=== PATIENT | male | born 1940 | race African-American/Black ===

== ENCOUNTER 2016-09-13 13:04 | Observation (INO) | payer MEDICARE, MEDICAID ==
[~2016-09-13] VITALS: Ht 170.2 cm; Wt 63.5 kg
[2016-09-13 15:49] LABS: *AMPHETAMINES SCREEN URINE NEGATIVE (NEGATIVE); *BARBITURATES SCREEN URINE NEGATIVE (NEGATIVE); *BENZODIAZEPINES SCREEN URINE NEGATIVE (NEGATIVE); *COCAINE SCREEN URINE NEGATIVE (NEGATIVE); CANNABINOID URINE SCREEN NEGATIVE (NEGATIVE); ECSTASY MDMA SCREEN URINE NEGATIVE (NEGATIVE); METHADONE URINE SCREEN NEGATIVE (NEGATIVE); OPIATES URINE SCREEN NEGATIVE (NEGATIVE); PHENCYCLIDINE URINE SCREEN NEGATIVE (NEGATIVE)
[2016-09-13] MEDS ORDERED: HEPARIN 100 UNITS/1 ML VIAL IVF STA (16:05)
[2016-09-13] MEDS ORDERED: HEPARIN 25,000 UNITS PREMIX 500 ML IV SCH ×2 (16:15→17:15)
[2016-09-13 16:37] LABS: BASOPHILS % 1.5 % (0.0-2.0); EOSINOPHILS % 2.1 % (0.0-5.0); HEMATOCRIT. 32.9 % (42.0-52.0); HEMOGLOBIN. 10.9 g/dL (14.0-18.0); LYMPHOCYTES % 26.2 % (20.0-50.0); MEAN CORPUSCULAR HEMOGLOBIN 27.7 pg (28.0-32.0); MEAN CORPUSCULAR HGB CONC 33.2 g/dL (31.0-37.0); MEAN CORPUSCULAR VOLUME 83.5 fL (80.0-94.0); MONOCYTES % 14.8 % (2.0-8.0); NEUTROPHILS % 55.4 % (40.0-76.0); PLATELET 270 x1000/uL (130-400); RED BLOOD CELL COUNT 3.93 mill/uL (4.7-6.1); RED CELL DISTRIBUTION WIDTH 14.4 % (11.6-14.6); WHITE BLOOD COUNT 7.2 x1000/uL (4.5-11.0)
[2016-09-13 16:42] LABS: PROTHROMBIN TIME 10.4 sec
[2016-09-13 16:51] LABS: ANION GAP 10; CALCIUM 8.8 mg/dL (8.5-10.1); CARBON DIOXIDE 32 mEq/L (21-32); CHLORIDE 102 mEq/L (98-107); INDEX HEMOLYSI 1 (1-3); INDEX ICTERIC 1 (1-4); INDEX LIPEMIC 1 (1-3); NT PRO B-TYPE NATRIURETIC PEP 645 pg/mL (5-125); TROPONIN I 0.02 ng/mL (0.00-0.04); UREA NITROGEN BLOOD 9 mg/dL (7-21); eGFR > 60 mL/min (>60)
[2016-09-13] MEDS ORDERED: HEPARIN SODIUM 1,000 UNIT/1ML VIAL IV STA ×2 (16:57→17:00)
[2016-09-13] MEDS ORDERED: POTASSIUM CHLORIDE 20MEQ TABLET SR PO ONE (18:30)
[2016-09-13 18:56] VITALS: BP 142/102
[2016-09-13 19:35] VITALS: BP 148/86
[2016-09-13] MEDS ORDERED: CLONIDINE 0.1MG TABLET PO PRN (21:00)
[2016-09-13] MEDS ORDERED: ONDANSETRON HCL 4MG/2ML VIAL IV PRN (21:00)
[2016-09-13] MEDS ORDERED: IPRATROPIUM/ALBUTEROL 0.5-3(2.5)MG/3ML NEB INH PRN (21:00)
[2016-09-13] MEDS ORDERED: HYDROCODONE/ACETAMINOPHEN 5/325MG TABLET PO PRN (21:00)
[2016-09-13] MEDS ORDERED: ACETAMINOPHEN 325MG TABLET PO PRN (21:00)
[2016-09-13] MEDS: POTASSIUM CHLORIDE 20MEQ TABLET SR PO SCH (21:17)
[2016-09-13] MEDS: ENOXAPARIN 60MG/0.6ML SYR SUBCUT SCH (22:22)
[2016-09-13] MEDS ORDERED: VIT B-12 (22:39)
[2016-09-13] MEDS ORDERED: LOSA50TA20 PO (22:40)
[2016-09-13] MEDS ORDERED: HYDR-4134 PO (22:42)
[2016-09-13] MEDS ORDERED: SIMV40TA5 PO (22:42)
[2016-09-13] MEDS ORDERED: CYAN10009 PO (22:50)
[2016-09-13 22:51] LABS: ANION GAP 13; CALCIUM 8.3 mg/dL (8.5-10.1); CARBON DIOXIDE 29 mEq/L (21-32); CHLORIDE 103 mEq/L (98-107); INDEX HEMOLYSI 1 (1-3); INDEX ICTERIC 1 (1-4); INDEX LIPEMIC 1 (1-3); UREA NITROGEN BLOOD 8 mg/dL (7-21); eGFR > 60 mL/min (>60)
[2016-09-13 22:55] LABS: TROPONIN I 0.02 ng/mL (0.00-0.04)
[2016-09-14] VITALS (7 sets, daily range): BP systolic 109–194; BP diastolic 67–106
[2016-09-14] MEDS: POTASSIUM CHLORIDE 20MEQ TABLET SR PO SCH ×2 (00:34→03:00)
[2016-09-14 05:58] LABS: BASOPHILS % 0.4 % (0.0-2.0); EOSINOPHILS % 1.9 % (0.0-5.0); HEMATOCRIT. 33.1 % (42.0-52.0); HEMOGLOBIN. 10.8 g/dL (14.0-18.0); LYMPHOCYTES % 35.1 % (20.0-50.0); MEAN CORPUSCULAR HEMOGLOBIN 27.3 pg (28.0-32.0); MEAN CORPUSCULAR HGB CONC 32.6 g/dL (31.0-37.0); MEAN CORPUSCULAR VOLUME 83.9 fL (80.0-94.0); MEAN PLATELET VOLUME 9.7 fl (7.4-10.4); MONOCYTES % 14.5 % (2.0-8.0); NEUTROPHILS % 48.1 % (40.0-76.0); PLATELET 283 x1000/uL (130-400); RED BLOOD CELL COUNT 3.94 mill/uL (4.7-6.1); RED CELL DISTRIBUTION WIDTH 14.8 % (11.6-14.6); WHITE BLOOD COUNT 7.6 x1000/uL (4.5-11.0)
[2016-09-14 06:57] LABS: INDEX HEMOLYSI 2 (1-3); INDEX ICTERIC 1 (1-4); INDEX LIPEMIC 1 (1-3)
[2016-09-14 07:10] LABS: CREATINE KINASE 177 IU/L (39-308); HDL CHOLESTEROL 75 mg/dL (40-59); LDL CHOLESTEROL 83 mg/dL (5-100); T4 FREE 1.23 ng/dL (0.76-1.46); TRIGLYCERIDE 128 mg/dL (0-150); TROPONIN I < 0.02 ng/mL (0.00-0.04)
[2016-09-14] MEDS: ENOXAPARIN 60MG/0.6ML SYR SUBCUT SCH (08:52)
[2016-09-14] MEDS ORDERED: SIMVASTATIN PO SCH (09:00)
[2016-09-14] MEDS ORDERED: HYDRALAZINE HCL 50MG TABLET PO SCH ×2 (09:00)
[2016-09-14] MEDS ORDERED: LOSARTAN POTASSIUM 50 MG TABLET PO SCH ×2 (09:00)
[2016-09-14] MEDS ORDERED: CYANOCOBALAMIN 1000MCG TABLET PO SCH (09:00)
[2016-09-14] MEDS ORDERED: VIT B12 PO SCH (09:00)
[2016-09-14] MEDS ORDERED: CYANOCOBALAMIN 100MCG TABLET PO SCH (09:00)
[2016-09-14] MEDS ORDERED: AMLODIPINE 5MG TABLET PO SCH (12:00)
[2016-09-14 13:34] LABS: CHLORIDE 104 mEq/L (98-107); INDEX HEMOLYSI 2 (1-3); INDEX ICTERIC 1 (1-4); INDEX LIPEMIC 1 (1-3)
[2016-09-14 13:39] LABS: ANION GAP 15; CALCIUM 8.9 mg/dL (8.5-10.1); CARBON DIOXIDE 27 mEq/L (21-32); UREA NITROGEN BLOOD 8 mg/dL (7-21)
[2016-09-14 13:42] LABS: eGFR > 60 mL/min (>60)
[2016-09-14] MEDS ORDERED: MEDICATION NOT ON FORMULARY EA (Simvastatin 1 TAB) PO SCH (17:00)
[2016-09-14] MEDS ORDERED: ATORVASTATIN CALCIUM 20MG TABLET PO SCH (21:00)
== END 2016-09-14 18:00 | disposition home or self-care (01) ==
LOC: ER 15:19 → INTOOBSV 18:46 → 8WST 18:46
PROVIDERS: ADMIT Internal Medicine; ATTEND Internal Medicine
DX: R60.0 Localized edema (principal); Z86.718 Personal history of other venous thrombosis and embolism; F17.200 Nicotine dependence, unspecified, uncomplicated; I10 Essential (primary) hypertension; J44.9 Chronic obstructive pulmonary disease, unspecified; Z85.46 Personal history of malignant neoplasm of prostate
CPT/HCPCS: 36415; 71010; 74000; 80048; 80061; 80305; 82550; 83880; 84439; 84443; 84484; 85025; 85610; 93005; 93971; 96365; 96366; 96372; 96374; 97162; 99291; G0378; J1644; J1650; J1642

== ENCOUNTER → 2017-07-20 | Outpatient (CLI) | payer MEDICARE, MEDICAID ==
[~2017-07-20] MED LIST: CYAN10009 PO; HYDR-4134 PO; LOSA50TA20 PO; SIMV40TA5 PO; VIT B-12
== END | disposition home or self-care (01) ==
LOC: CARD 09:03
PROVIDERS: ATTEND Psychiatry & Neurology Neurology
DX: F03.90 Unspecified dementia, unspecified severity, without behavioral disturbance, psychotic disturbance, mood disturbance, and anxiety (principal)

== ENCOUNTER 2018-05-12 16:18 | Inpatient (IN) | payer MEDICARE, MEDICAID ==
[~2018-05-12] VITALS: Ht 167.6 cm; Wt 64.0 kg
[2018-05-12 19:11] LABS: BASOPHILS % 1.1 % (0.0-2.0); EOSINOPHILS % 2.4 % (0.0-5.0); HEMATOCRIT. 27.2 % (42.0-52.0); HEMOGLOBIN. 8.9 g/dL (14.0-18.0); LYMPHOCYTES % 15.3 % (20.0-50.0); MEAN CORPUSCULAR HEMOGLOBIN 26.2 pg (28.0-32.0); MEAN CORPUSCULAR VOLUME 80.3 fL (80.0-94.0); MEAN PLATELET VOLUME 7.4 fl (7.4-10.4); MONOCYTES % 10.1 % (2.0-8.0); NEUTROPHILS % 71.1 % (40.0-76.0); PLATELET 402 x1000/uL (130-400); RED BLOOD CELL COUNT 3.39 mill/uL (4.7-6.1); RED CELL DISTRIBUTION WIDTH 15.3 % (11.6-14.6)
[2018-05-12 19:18] LABS: CHLORIDE 100 mEq/L (98-107)
[2018-05-12 19:20] LABS: INR 1.1; PARTIAL THROMBOPLASTIN TIME 26.4 sec (23.4-31.0); PROTHROMBIN TIME 10.7 sec (9.1-11.1)
[2018-05-12] MEDS ORDERED: POTASSIUM CHLORIDE 20MEQ TABLET SR PO ONE (19:30)
[2018-05-12] MEDS ORDERED: KCL 20MEQ/100ML PREMIX 100 ML IV ONE (19:30)
[2018-05-12] MEDS ORDERED: ENOXAPARIN 60MG/0.6ML SYR SUBCUT ONE (19:45)
[2018-05-12] MEDS ORDERED: LORAZEPAM 2MG/ML CPJ IM ONE (21:00)
[2018-05-13] VITALS (7 sets, daily range): BP systolic 100–153; BP diastolic 60–81
[2018-05-13] MEDS ORDERED: QUET50TA21 PO (02:11)
[2018-05-13] MEDS ORDERED: MEMA10TA19 PO (02:11)
[2018-05-13] MEDS ORDERED: AMLO5TAB88 PO (02:11)
[2018-05-13] MEDS ORDERED: DONE10TA43 PO (02:11)
[2018-05-13] MEDS ORDERED: DIPH1TAB24 PO (02:11)
[2018-05-13] MEDS ORDERED: TRAM50TA3 PO (02:11)
[2018-05-13] MEDS ORDERED: BUDE6.9H IH (02:11)
[2018-05-13] MEDS ORDERED: ASPI-1158 PO (02:11)
[2018-05-13] MEDS ORDERED: TRAMADOL 50MG TABLET PO PRN ×2 (06:00)
[2018-05-13] MEDS ORDERED: DIPHENOXYLATE/ATROPINE 2.5/0.025MG TABLET PO PRN (06:15)
[2018-05-13] MEDS ORDERED: MEDICATION NOT ON FORMULARY EA (Amlodipine Besylate 5 MG) PO SCH (07:20)
[2018-05-13] MEDS: DONEPEZIL HCL 10MG TABLET PO SCH (08:26)
[2018-05-13] MEDS: AMLODIPINE 5MG TABLET PO SCH (08:27)
[2018-05-13] MEDS: MEMANTINE HCL 10MG TABLET PO SCH (08:27)
[2018-05-13] MEDS: ASPIRIN 81MG TABLET PO SCH (08:27)
[2018-05-13] MEDS: QUETIAPINE FUMARATE 50MG TABLET PO SCH ×2 (08:28→16:41)
[2018-05-13] MEDS: ENOXAPARIN 60MG/0.6ML SYR SUBCUT SCH ×2 (08:29→20:47)
[2018-05-13] MEDS ORDERED: DIPHENOXYLATE HCL PO SCH (09:00)
[2018-05-13] MEDS ORDERED: MEDICATION NOT ON FORMULARY EA (Tramadol Hcl 50 MG) PO SCH (09:00)
[2018-05-13] MEDS ORDERED: ATROPINE PO SCH (09:00)
[2018-05-13] MEDS ORDERED: [UNRECOGNIZED DRUG - OTHER] PO SCH (09:00)
[2018-05-13] MEDS ORDERED: MEDICATION NOT ON FORMULARY EA (Aspirin (Aspirin Ec) 81 MG) PO SCH (09:00)
[2018-05-13 09:58] LABS: HEMATOCRIT 28.5 % (42.0-52.0); HEMOGLOBIN 9.4 g/dL (14.0-18.0); MEAN CORPUSCULAR HEMOGLOBIN 26.6 pg (28.0-32.0); MEAN CORPUSCULAR VOLUME 80.6 fL (80.0-94.0); PLATELET 453 x1000/uL (130-400); RED BLOOD CELL COUNT 3.54 mill/uL (4.7-6.1); RED CELL DISTRIBUTION WIDTH 15.3 % (11.6-14.6)
[2018-05-13 10:05] LABS: CHLORIDE 103 mEq/L (98-107)
[2018-05-13] MEDS ORDERED: POTASSIUM CHLORIDE 20MEQ/PACKET PO NR (12:45)
[2018-05-13] MEDS ORDERED: POTASSIUM CHLORIDE 20MEQ TABLET SR PO SCH (14:30)
[2018-05-13] MEDS ORDERED: WARFARIN SODIUM 5MG TABLET PO SCH (18:00)
[2018-05-14 04:00] VITALS: BP 148/61
[2018-05-14] MEDS: PANTOPRAZOLE 40MG DR TABLET PO SCH (06:19)
[2018-05-14 06:50] LABS: HEMATOCRIT. 27.9 % (42.0-52.0); HEMOGLOBIN. 9.1 g/dL (14.0-18.0); MEAN CORPUSCULAR HEMOGLOBIN 26.2 pg (28.0-32.0); MEAN CORPUSCULAR VOLUME 80.4 fL (80.0-94.0); MEAN PLATELET VOLUME 7.2 fl (7.4-10.4); PLATELET 530 x1000/uL (130-400); RED BLOOD CELL COUNT 3.47 mill/uL (4.7-6.1); RED CELL DISTRIBUTION WIDTH 15.7 % (11.6-14.6)
[2018-05-14 07:01] LABS: CHLORIDE 106 mEq/L (98-107)
[2018-05-14 08:39] VITALS: BP 139/66
[2018-05-14] MEDS: MEMANTINE HCL 10MG TABLET PO SCH (08:48)
[2018-05-14] MEDS: ASPIRIN 81MG TABLET PO SCH (08:48)
[2018-05-14] MEDS: AMLODIPINE 5MG TABLET PO SCH (08:48)
[2018-05-14] MEDS: DONEPEZIL HCL 10MG TABLET PO SCH (08:48)
[2018-05-14] MEDS: QUETIAPINE FUMARATE 50MG TABLET PO SCH ×2 (08:48→17:03)
[2018-05-14] MEDS: ENOXAPARIN 60MG/0.6ML SYR SUBCUT SCH ×2 (08:49→20:37)
[2018-05-14 12:13] VITALS: BP 124/62
[2018-05-14 16:15] VITALS: BP 161/59
[2018-05-14] MEDS ORDERED: WARFARIN SODIUM 7.5MG TABLET PO SCH (18:00)
[2018-05-14 18:57] LABS: PLATELET ESTIMATE INCREASED
[2018-05-14 20:00] VITALS: BP 107/71
[2018-05-14] MEDS ORDERED: LORAZEPAM 2MG/ML CPJ IV PRN (23:00)
[2018-05-15] VITALS: BP 112/71
[2018-05-15 04:00] VITALS: BP 118/76
[2018-05-15] MEDS: PANTOPRAZOLE 40MG DR TABLET PO SCH (06:12)
[2018-05-15 08:00] VITALS: BP 149/78
[2018-05-15] MEDS: ENOXAPARIN 60MG/0.6ML SYR SUBCUT SCH ×2 (08:37→21:34)
[2018-05-15] MEDS: QUETIAPINE FUMARATE 50MG TABLET PO SCH ×2 (08:38→17:26)
[2018-05-15] MEDS: ASPIRIN 81MG TABLET PO SCH (08:38)
[2018-05-15] MEDS: MEMANTINE HCL 10MG TABLET PO SCH (08:38)
[2018-05-15] MEDS: AMLODIPINE 5MG TABLET PO SCH (08:38)
[2018-05-15] MEDS: DONEPEZIL HCL 10MG TABLET PO SCH (08:38)
[2018-05-15 10:07] LABS: INR 1.1
[2018-05-15 12:00] VITALS: BP_SYST 132; BP_SYST 137; BP_DIAS 65
[2018-05-15 16:00] VITALS: BP 135/68
[2018-05-15] MEDS ORDERED: WARFARIN SODIUM 7.5MG TABLET PO SCH (18:00)
[2018-05-15 20:00] VITALS: BP 139/74
[2018-05-16] VITALS: BP 133/94
[2018-05-16 04:00] VITALS: BP 145/73
[2018-05-16] MEDS: PANTOPRAZOLE 40MG DR TABLET PO SCH (07:02)
[2018-05-16 07:59] LABS: INR 1.4; PROTHROMBIN TIME 13.6 sec (9.1-11.1)
[2018-05-16 08:00] VITALS: BP 145/76
[2018-05-16 08:03] LABS: HEMATOCRIT. 28.3 % (42.0-52.0); HEMOGLOBIN. 9.1 g/dL (14.0-18.0); MEAN CORPUSCULAR HEMOGLOBIN 26.1 pg (28.0-32.0); MEAN CORPUSCULAR VOLUME 81.1 fL (80.0-94.0); MEAN PLATELET VOLUME 8.4 fl (7.4-10.4); PLATELET 598 x1000/uL (130-400); RED BLOOD CELL COUNT 3.49 mill/uL (4.7-6.1)
[2018-05-16 08:11] LABS: CHLORIDE 103 mEq/L (98-107)
[2018-05-16 10:56] LABS: PLATELET ESTIMATE INCREASED
[2018-05-16] MEDS: DONEPEZIL HCL 10MG TABLET PO SCH (11:04)
[2018-05-16] MEDS: MEMANTINE HCL 10MG TABLET PO SCH (11:04)
[2018-05-16] MEDS: AMLODIPINE 5MG TABLET PO SCH (11:05)
[2018-05-16] MEDS: ASPIRIN 81MG TABLET PO SCH (11:05)
[2018-05-16] MEDS: QUETIAPINE FUMARATE 50MG TABLET PO SCH ×2 (11:12→17:48)
[2018-05-16] MEDS: ENOXAPARIN 60MG/0.6ML SYR SUBCUT SCH ×2 (11:13→20:36)
[2018-05-16 12:00] VITALS: BP 138/76
[2018-05-16] MEDS ORDERED: IOHEXOL-350 100 ML BOTTLE ONE (14:42)
[2018-05-16 16:00] VITALS: BP 130/78
[2018-05-16] MEDS ORDERED: WARFARIN SODIUM 7.5MG TABLET PO SCH (18:00)
[2018-05-16 20:00] VITALS: BP 143/57
[2018-05-17] VITALS: BP 138/51
[2018-05-17 04:00] VITALS: BP 143/57
[2018-05-17 07:01] LABS: INR 1.8; PROTHROMBIN TIME 18.1 sec (9.1-11.1)
[2018-05-17 07:03] LABS: HEMATOCRIT. 29.2 % (42.0-52.0); HEMOGLOBIN. 9.1 g/dL (14.0-18.0); MEAN CORPUSCULAR HEMOGLOBIN 25.4 pg (28.0-32.0); MEAN CORPUSCULAR VOLUME 81.1 fL (80.0-94.0); MEAN PLATELET VOLUME 8.3 fl (7.4-10.4); PLATELET 593 x1000/uL (130-400); RED CELL DISTRIBUTION WIDTH 16.2 % (11.6-14.6)
[2018-05-17 07:31] LABS: CHLORIDE 106 mEq/L (98-107)
[2018-05-17] MEDS ORDERED: FAMOTIDINE 20MG TABLET PO SCH (09:00)
[2018-05-17] MEDS: DONEPEZIL HCL 10MG TABLET PO SCH (09:03)
[2018-05-17] MEDS: MEMANTINE HCL 10MG TABLET PO SCH (09:04)
[2018-05-17] MEDS: AMLODIPINE 5MG TABLET PO SCH (09:04)
[2018-05-17] MEDS: ASPIRIN 81MG TABLET PO SCH (09:05)
[2018-05-17] MEDS: ENOXAPARIN 60MG/0.6ML SYR SUBCUT SCH (09:06)
[2018-05-17] MEDS: QUETIAPINE FUMARATE 50MG TABLET PO SCH (09:34)
[2018-05-17 10:03] LABS: ATYPICAL LYMPHOCYTES 1
[2018-05-17 10:05] LABS: PLATELET ESTIMATE INCREASED
[2018-05-17 13:16] VITALS: BP 133/62
[2018-05-17] MEDS ORDERED: WARFARIN SODIUM 3MG TABLET PO NR (18:00)
== END 2018-05-17 15:42 | disposition home or self-care (01) | DRG 299 ==
LOC: ER 16:18 → EDBEDREQ 19:18 → ENRESERV 23:13 → ER 05-13 → 6WST 05-13 00:35
PROVIDERS: ADMIT Internal Medicine Nephrology; ATTEND Internal Medicine Nephrology
DX: I82.413 Acute embolism and thrombosis of femoral vein, bilateral (principal); E43 Unspecified severe protein-calorie malnutrition; E87.6 Hypokalemia; I82.433 Acute embolism and thrombosis of popliteal vein, bilateral; I82.513 Chronic embolism and thrombosis of femoral vein, bilateral; I82.533 Chronic embolism and thrombosis of popliteal vein, bilateral; F03.90 Unspecified dementia, unspecified severity, without behavioral disturbance, psychotic disturbance, mood disturbance, and anxiety; F17.200 Nicotine dependence, unspecified, uncomplicated; I10 Essential (primary) hypertension; J44.9 Chronic obstructive pulmonary disease, unspecified; I25.10 Atherosclerotic heart disease of native coronary artery without angina pectoris; Z79.01 Long term (current) use of anticoagulants; Z85.46 Personal history of malignant neoplasm of prostate; Z90.79 Acquired absence of other genital organ(s); Z79.899 Other long term (current) drug therapy; Z78.1 Physical restraint status
CPT/HCPCS: 36415; 71045; 71275; 80048; 83735; 83880; 84100; 84484; 85027; 93005; 93306; 93970; 96365; 96372; 99285; A6261; J1650; J2060; J3480; Q9967

== ENCOUNTER 2018-08-07 10:23 | Emergency (ER) | payer MEDICARE, MEDICAID ==
[~2018-08-07] VITALS: Ht 180.3 cm; Wt 72.0 kg
[~2018-08-07 10:23] MED LIST changes: +AMLO5TAB88 PO; +ASPI-1158 PO; +BUDE6.9H IH; +DIPH1TAB24 PO; +DONE10TA43 PO; +MEMA10TA19 PO; +QUET50TA21 PO; +TRAM50TA3 PO
[2018-08-07] MEDS ORDERED: SODIUM CHLORIDE 0.9% 1,000 ML IV ONE (10:54)
[2018-08-07] MEDS ORDERED: LEVETIRACETAM 500MG PREMIX 100 ML IV ONE (11:00)
[2018-08-07 11:50] LABS: HEMATOCRIT. 26.3 % (42.0-52.0); HEMOGLOBIN. 8.3 g/dL (14.0-18.0); MEAN CORPUSCULAR VOLUME 73.3 fL (80.0-94.0); MEAN PLATELET VOLUME 6.7 fl (7.4-10.4); PLATELET 717 x1000/uL (130-400); RED BLOOD CELL COUNT 3.59 mill/uL (4.7-6.1); RED CELL DISTRIBUTION WIDTH 19.6 % (11.6-14.6)
[2018-08-07] MEDS ORDERED: LEVETIRACETAM 500MG PREMIX 100 ML IV SCH (11:50)
[2018-08-07 11:56] LABS: CHLORIDE 105 mEq/L (98-107)
[2018-08-07 11:59] LABS: INR 1.2; PARTIAL THROMBOPLASTIN TIME 28.2 sec (23.4-31.0); PROTHROMBIN TIME 12.7 sec (9.6-11.0)
[2018-08-07 12:00] LABS: ETHANOL BLOOD < 10 mg/dL
[2018-08-07 12:04] LABS: CREATINE KINASE 58 IU/L (39-308)
[2018-08-07 12:11] LABS: NUCLEATED RED BLOOD CELLS 1 /100 WBC
[2018-08-07 12:12] LABS: PLATELET ESTIMATE INCREASED
[2018-08-07 15:37] LABS: CLARITY URINE CLOUDY (CLEAR); COLOR URINE YELLOW (YELLOW); KETONES URINE NEGATIVE (NEGATIVE); LEUKOCYTE ESTERASE URINE NEGATIVE (NEGATIVE); NITRITE URINE NEGATIVE (NEGATIVE); OCCULT BLOOD URINE NEGATIVE (NEGATIVE); PH URINE 5.5 (4.5-8.0); PROTEIN URINE NEGATIVE (NEGATIVE); SPECIFIC GRAVITY URINE 1.015 (1.005-1.030); UROBILINOGEN URINE 0.2 E.U./dL (0.2-1.0)
[2018-08-07 15:52] LABS: *BARBITURATES SCREEN URINE NEGATIVE (NEGATIVE); *BENZODIAZEPINES SCREEN URINE NEGATIVE (NEGATIVE); *COCAINE SCREEN URINE NEGATIVE (NEGATIVE)
[2018-08-07 15:53] LABS: *AMPHETAMINES SCREEN URINE NEGATIVE (NEGATIVE); CANNABINOID URINE SCREEN NEGATIVE (NEGATIVE); METHADONE URINE SCREEN NEGATIVE (NEGATIVE); OPIATES URINE SCREEN NEGATIVE (NEGATIVE); PHENCYCLIDINE URINE SCREEN NEGATIVE (NEGATIVE)
[2018-08-07 17:45] VITALS: BP 159/82
== END 2018-08-07 17:59 | disposition home or self-care (01) ==
LOC: ER 10:23
DX: G40.909 Epilepsy, unspecified, not intractable, without status epilepticus (principal); I10 Essential (primary) hypertension; D64.9 Anemia, unspecified; F03.90 Unspecified dementia, unspecified severity, without behavioral disturbance, psychotic disturbance, mood disturbance, and anxiety; Z91.81 History of falling
CPT/HCPCS: 36415; 70450; 71045; 80053; 80305; 80320; 81003; 82550; 82962; 84484; 85025; 85610; 85730; 93005; 96365; 96366; 99284; J1953; J7030; G0480

== ENCOUNTER 2018-08-22 14:10 | Inpatient (IN) | payer MEDICARE, MEDICAID ==
[~2018-08-22] VITALS: Ht 167.6 cm; Wt 70.3 kg
[2018-08-22] MEDS ORDERED: SODIUM CHLORIDE 0.9% 1,000 ML IV ONE (15:12)
[2018-08-22 15:35] LABS: CHLORIDE 109 mEq/L (98-107)
[2018-08-22 15:38] LABS: INR 1.3; PARTIAL THROMBOPLASTIN TIME 29.2 sec (23.4-31.0)
[2018-08-22 15:39] LABS: HEMOGLOBIN. 7.2 g/dL (14.0-18.0); MEAN CORPUSCULAR HEMOGLOBIN 22.2 pg (28.0-32.0); MEAN CORPUSCULAR VOLUME 74.6 fL (80.0-94.0); MEAN PLATELET VOLUME 7.5 fl (7.4-10.4); PLATELET 416 x1000/uL (130-400); RED BLOOD CELL COUNT 3.22 mill/uL (4.7-6.1); RED CELL DISTRIBUTION WIDTH 22.4 % (11.6-14.6)
[2018-08-22 15:44] LABS: CREATINE KINASE 81 IU/L (39-308)
[2018-08-22 15:46] LABS: CREATINE KINASE MB FRACTION < 1.0 ng/mL (0.5-3.6)
[2018-08-22 16:22] LABS: NUCLEATED RED BLOOD CELLS 8 /100 WBC
[2018-08-22 16:32] LABS: PLATELET ESTIMATE SLIGHTLY INCREASED
[2018-08-22 18:26] LABS: CLARITY URINE CLEAR (CLEAR); COLOR URINE YELLOW (YELLOW); KETONES URINE NEGATIVE (NEGATIVE); LEUKOCYTE ESTERASE URINE NEGATIVE (NEGATIVE); NITRITE URINE POSITIVE (NEGATIVE); OCCULT BLOOD URINE NEGATIVE (NEGATIVE); PH URINE 6.5 (4.5-8.0); PROTEIN URINE NEGATIVE (NEGATIVE); SPECIFIC GRAVITY URINE 1.017 (1.005-1.030)
[2018-08-22] MEDS ORDERED: CLONIDINE 0.1MG TABLET PO PRN (20:00)
[2018-08-22] MEDS ORDERED: LEVOFLOXACIN 500MG PREMIX 100 ML IV SCH (20:00)
[2018-08-22] MEDS ORDERED: ONDANSETRON HCL 4MG/2ML INJ IV PRN (20:00)
[2018-08-22] MEDS ORDERED: ACETAMINOPHEN 325MG TABLET PO PRN (20:00)
[2018-08-22] MEDS ORDERED: DOCUSATE SODIUM 100MG CAPSULE PO PRN (20:00)
[2018-08-22] MEDS ORDERED: HYDROMORPHONE HCL/PF 2MG/ML CPJ IV PRN (20:00)
[2018-08-22 22:40] VITALS: BP 151/50
[2018-08-23] VITALS (12 sets, daily range): BP systolic 115–140; BP diastolic 55–94
[2018-08-23] MEDS: LEVOFLOXACIN 500MG PREMIX 100 ML IV SCH (00:54)
[2018-08-23] MEDS: DEXT 5%/0.45% NACL 1000ML 1,000 ML IV SCH (00:54)
[2018-08-23 07:24] LABS: CHLORIDE 110 mEq/L (98-107)
[2018-08-23 07:31] LABS: LDL CHOLESTEROL 65 mg/dL (5-100)
[2018-08-23 07:32] LABS: HDL CHOLESTEROL 62 mg/dL (40-59)
[2018-08-23 07:35] LABS: HEMATOCRIT. 22.7 % (42.0-52.0); MEAN CORPUSCULAR HEMOGLOBIN 22.3 pg (28.0-32.0); MEAN CORPUSCULAR VOLUME 74.2 fL (80.0-94.0); MEAN PLATELET VOLUME 7.5 fl (7.4-10.4); PLATELET 452 x1000/uL (130-400); RED BLOOD CELL COUNT 3.06 mill/uL (4.7-6.1)
[2018-08-23 07:42] LABS: HEMOGLOBIN. 6.8 g/dL (14.0-18.0)
[2018-08-23] MEDS: IPRATROPIUM/ALBUTEROL 0.5-3(2.5)MG/3ML NEB INH SCH ×2 (08:35→12:00)
[2018-08-23 11:08] LABS: NUCLEATED RED BLOOD CELLS 3 /100 WBC; PLATELET ESTIMATE INCREASED
[2018-08-23 17:25] LABS: TOTAL IRON BINDING CAPACITY 367 ug/dL (250-450)
[2018-08-23] MEDS: QUETIAPINE FUMARATE 25MG TABLET PO SCH (23:18)
[2018-08-24] VITALS: BP 146/70
[2018-08-24] MEDS: LEVOFLOXACIN 500MG PREMIX 100 ML IV SCH (00:08)
[2018-08-24] MEDS ORDERED: LORAZEPAM 2MG/ML CPJ IV PRN (00:45)
[2018-08-24] MEDS: IPRATROPIUM/ALBUTEROL 0.5-3(2.5)MG/3ML NEB INH SCH ×2 (01:21→22:32)
[2018-08-24 04:00] VITALS: BP 150/72
[2018-08-24 06:31] LABS: HEMOGLOBIN. 8.5 g/dL (14.0-18.0); MEAN CORPUSCULAR HEMOGLOBIN 23.6 pg (28.0-32.0); MEAN CORPUSCULAR VOLUME 75.3 fL (80.0-94.0); MEAN PLATELET VOLUME 7.5 fl (7.4-10.4); PLATELET 455 x1000/uL (130-400); RED BLOOD CELL COUNT 3.58 mill/uL (4.7-6.1); RED CELL DISTRIBUTION WIDTH 22.2 % (11.6-14.6)
[2018-08-24 06:52] LABS: CHLORIDE 106 mEq/L (98-107)
[2018-08-24] MEDS: DEXT 5%/0.45% NACL 1000ML 1,000 ML IV SCH ×2 (08:04→17:08)
[2018-08-24] MEDS: QUETIAPINE FUMARATE 25MG TABLET PO SCH ×2 (08:04→20:44)
[2018-08-24 08:08] VITALS: BP 158/86
[2018-08-24 08:56] LABS: NUCLEATED RED BLOOD CELLS 5 /100 WBC; PLATELET ESTIMATE SLIGHTLY INCREASED
[2018-08-24] MEDS ORDERED: LORAZEPAM 2MG/ML CPJ IV NR (11:15)
[2018-08-24 12:28] VITALS: BP 158/86
[2018-08-24 13:23] LABS: PARTIAL THROMBOPLASTIN TIME 22.5 sec (23.4-31.0)
[2018-08-24 16:47] VITALS: BP 146/74
[2018-08-24] MEDS ORDERED: IRON SUCROSE COMPLEX 100 MG/5 ML ML IV SCH (18:15)
[2018-08-24 20:00] VITALS: BP 152/65
[2018-08-25] VITALS: BP 147/59
[2018-08-25] MEDS: LEVOFLOXACIN 500MG PREMIX 100 ML IV SCH (00:21)
[2018-08-25] MEDS: IPRATROPIUM/ALBUTEROL 0.5-3(2.5)MG/3ML NEB INH SCH (01:22)
[2018-08-25 04:00] VITALS: BP 151/73
[2018-08-25 04:12] VITALS: BP 151/73
[2018-08-25 06:19] LABS: HEMATOCRIT. 28.7 % (42.0-52.0); HEMOGLOBIN. 8.8 g/dL (14.0-18.0); MEAN CORPUSCULAR HEMOGLOBIN 23.3 pg (28.0-32.0); MEAN CORPUSCULAR VOLUME 76.4 fL (80.0-94.0); MEAN PLATELET VOLUME 7.1 fl (7.4-10.4); PLATELET 359 x1000/uL (130-400); RED BLOOD CELL COUNT 3.76 mill/uL (4.7-6.1); RED CELL DISTRIBUTION WIDTH 22.7 % (11.6-14.6)
[2018-08-25 06:48] LABS: CHLORIDE 108 mEq/L (98-107)
[2018-08-25 08:29] VITALS: BP 151/82
[2018-08-25 09:01] LABS: NUCLEATED RED BLOOD CELLS 6 /100 WBC; PLATELET ESTIMATE NORMAL
[2018-08-25] MEDS: QUETIAPINE FUMARATE 25MG TABLET PO SCH (09:42)
[2018-08-25 10:43] VITALS: BP 151/82
[2018-08-25 12:00] VITALS: BP 155/65
[2018-08-25] MEDS: DEXT 5%/0.45% NACL 1000ML 1,000 ML IV SCH (12:00)
== END 2018-08-25 14:00 | disposition home or self-care (01) | DRG 812 ==
LOC: ER 14:10 → 6WST 16:55 → EDBEDREQTM 16:59 → EDBEDREQ 16:59 → ENRESERV 20:52
PROVIDERS: ADMIT Internal Medicine Nephrology; ATTEND Internal Medicine Nephrology
PROC: 30233N1 Transfusion of Nonautologous Red Blood Cells into Peripheral Vein, Percutaneous Approach (ICD-10-PCS; principal; 2018-08-23)
DX: D50.9 Iron deficiency anemia, unspecified (principal); E44.0 Moderate protein-calorie malnutrition; I82.513 Chronic embolism and thrombosis of femoral vein, bilateral; I82.533 Chronic embolism and thrombosis of popliteal vein, bilateral; E87.6 Hypokalemia; F03.90 Unspecified dementia, unspecified severity, without behavioral disturbance, psychotic disturbance, mood disturbance, and anxiety; G40.909 Epilepsy, unspecified, not intractable, without status epilepticus; I10 Essential (primary) hypertension; I27.20 Pulmonary hypertension, unspecified; T45.515A Adverse effect of anticoagulants, initial encounter; I25.10 Atherosclerotic heart disease of native coronary artery without angina pectoris; I48.91 Unspecified atrial fibrillation; Z95.828 Presence of other vascular implants and grafts; Z68.25 Body mass index [BMI] 25.0-25.9, adult; Z79.82 Long term (current) use of aspirin; Z79.01 Long term (current) use of anticoagulants; Y92.89 Other specified places as the place of occurrence of the external cause
CPT/HCPCS: 36415; 71045; 80048; 80061; 82270; 82550; 82553; 82728; 83540; 83550; 83735; 83880; 84443; 84484; 86850; 86900; 86920; 92610; 93005; 93306; 93970; 94640; 96360; 97162; 99285; C1893; J1956; J2060; J7030; J7050; J7620; P9016

== ENCOUNTER 2018-10-08 10:42 | Inpatient (IN) | payer MEDICARE, MEDICAID ==
[~2018-10-08] VITALS: Ht 167.6 cm; Wt 68.0 kg
[~2018-10-08 10:42] MED LIST changes: -LOSA50TA20 PO; +LOSA50TA41 PO
[2018-10-08] MEDS ORDERED: SODIUM CHLORIDE 0.9% 500 ML IV ONE (12:05)
[2018-10-08 12:16] LABS: BASOPHILS % 1.5 % (0.0-2.0); EOSINOPHILS % 5.8 % (0.0-5.0); LYMPHOCYTES % 21.7 % (20.0-50.0); MEAN CORPUSCULAR HEMOGLOBIN 22.9 pg (28.0-32.0); MEAN CORPUSCULAR VOLUME 75.6 fL (80.0-94.0); MEAN PLATELET VOLUME 7.8 fl (7.4-10.4); MONOCYTES % 8.4 % (2.0-8.0); NEUTROPHILS % 62.6 % (40.0-76.0); PLATELET 410 x1000/uL (130-400); RED BLOOD CELL COUNT 2.52 mill/uL (4.7-6.1); RED CELL DISTRIBUTION WIDTH 22.9 % (11.6-14.6)
[2018-10-08 12:18] LABS: CHLORIDE 105 mEq/L (98-107)
[2018-10-08 12:23] LABS: PARTIAL THROMBOPLASTIN TIME 23.1 sec (23.4-31.0)
[2018-10-08 12:24] LABS: HEMOGLOBIN. 5.8 g/dL (14.0-18.0)
[2018-10-08 13:17] LABS: PLATELET ESTIMATE SLIGHTLY INCREASED
[2018-10-08] MEDS ORDERED: CLONIDINE 0.1MG TABLET PO PRN (14:30)
[2018-10-08] MEDS ORDERED: PANTOPRAZOLE 40MG DR TABLET PO SCH (14:30)
[2018-10-08] MEDS ORDERED: ACETAMINOPHEN 325MG TABLET PO PRN (14:30)
[2018-10-08] MEDS ORDERED: ONDANSETRON HCL 4MG/2ML INJ IV PRN (14:30)
[2018-10-08] MEDS ORDERED: DOCUSATE SODIUM 100MG CAPSULE PO PRN (14:30)
[2018-10-08] MEDS: DIPHENHYDRAMINE 50MG/ML VIAL IV PRN ×2 (14:45→22:56)
[2018-10-08] MEDS ORDERED: FERROUS SULFATE 325MG TABLET PO SCH (17:00)
[2018-10-08 19:14] LABS: TOTAL IRON BINDING CAPACITY 375 ug/dL (250-450)
[2018-10-08] MEDS ORDERED: NA PHOS,M-B/NA PHOS,DI-BA ENEMA 118ML PR PRN (21:00)
[2018-10-08] MEDS ORDERED: QUETIAPINE FUMARATE 25MG TABLET PO NR (21:04)
[2018-10-08 22:40] VITALS: BP 158/81
[2018-10-09] VITALS (12 sets, daily range): BP systolic 105–178; BP diastolic 62–90
[2018-10-09 00:21] LABS: HEMATOCRIT 24.1 % (42.0-52.0); HEMOGLOBIN 7.6 g/dL (14.0-18.0)
[2018-10-09] MEDS: DIPHENHYDRAMINE 50MG/ML VIAL IV PRN (03:16)
[2018-10-09] MEDS: LORAZEPAM 2MG/ML CPJ IV PRN ×3 (06:19→14:56)
[2018-10-09 06:33] LABS: BASOPHILS % 0.7 % (0.0-2.0); EOSINOPHILS % 2.4 % (0.0-5.0); LYMPHOCYTES % 14.9 % (20.0-50.0); MEAN CORPUSCULAR HEMOGLOBIN 23.7 pg (28.0-32.0); MEAN CORPUSCULAR VOLUME 76.1 fL (80.0-94.0); MEAN PLATELET VOLUME 7.7 fl (7.4-10.4); MONOCYTES % 7.8 % (2.0-8.0); NEUTROPHILS % 74.2 % (40.0-76.0); PLATELET 434 x1000/uL (130-400); RED BLOOD CELL COUNT 3.15 mill/uL (4.7-6.1); RED CELL DISTRIBUTION WIDTH 22.3 % (11.6-14.6)
[2018-10-09 06:48] LABS: CHLORIDE 106 mEq/L (98-107)
[2018-10-09 07:04] LABS: HEMOGLOBIN. 7.5 g/dL (14.0-18.0)
[2018-10-09] MEDS ORDERED: PANTOPRAZOLE 40MG DR TABLET PO SCH (07:40)
[2018-10-09] MEDS ORDERED: QUETIAPINE FUMARATE 25MG TABLET PO SCH (09:00)
[2018-10-09] MEDS: FERROUS SULFATE 325MG TABLET PO SCH ×3 (09:37→18:57)
[2018-10-09 15:08] LABS: HEMATOCRIT 25.1 % (42.0-52.0); HEMOGLOBIN 7.8 g/dL (14.0-18.0)
[2018-10-09 19:53] LABS: HEMATOCRIT 28.4 % (42.0-52.0); HEMOGLOBIN 8.8 g/dL (14.0-18.0)
[2018-10-09 22:48] LABS: HEMATOCRIT 28.4 % (42.0-52.0); HEMOGLOBIN 9.1 g/dL (14.0-18.0)
== END 2018-10-09 23:25 | disposition home or self-care (01) | DRG 812 ==
LOC: ER 11:12 → EDBEDREQ 14:48 → EDBEDREQTM 14:48 → ENRESERV 22:08 → 7WST 22:37
PROVIDERS: ADMIT Internal Medicine Nephrology; ATTEND Internal Medicine Nephrology
PROC: 30233N1 Transfusion of Nonautologous Red Blood Cells into Peripheral Vein, Percutaneous Approach (ICD-10-PCS; principal; 2018-10-08)
DX: D50.9 Iron deficiency anemia, unspecified (principal); E44.0 Moderate protein-calorie malnutrition; I82.593 Chronic embolism and thrombosis of other specified deep vein of lower extremity, bilateral; I10 Essential (primary) hypertension; F03.90 Unspecified dementia, unspecified severity, without behavioral disturbance, psychotic disturbance, mood disturbance, and anxiety; I25.10 Atherosclerotic heart disease of native coronary artery without angina pectoris; R79.89 Other specified abnormal findings of blood chemistry; J44.9 Chronic obstructive pulmonary disease, unspecified; F17.210 Nicotine dependence, cigarettes, uncomplicated; Z95.828 Presence of other vascular implants and grafts; Z85.46 Personal history of malignant neoplasm of prostate; Z68.24 Body mass index [BMI] 24.0-24.9, adult; Z79.82 Long term (current) use of aspirin; Z79.899 Other long term (current) drug therapy
CPT/HCPCS: 36415; 71045; 80048; 82270; 82728; 83540; 83550; 83880; 84484; 85014; 85018; 86850; 86900; 86920; 93005; 96374; 99285; J1200; J2060; J7040; J7050; P9016

== ENCOUNTER 2019-01-23 18:15 | Inpatient (IN) | payer MEDICARE, MEDICAID ==
[~2019-01-23] VITALS: Ht 167.6 cm; Wt 51.7 kg
[~2019-01-23 18:15] MED LIST changes: +ALPR-340 MT; -ASPI-1158 PO; +CARV6.2548 MT; +CEPH500C2 MT; +CYAN-50 PO; -CYAN10009 PO; +FERR325T6 MT; +LAMO25TA9 PO; +LEVE500T19 MT; +MIRA50TA MT; +MULT-1146 PO; +TETR-80 OP; +ZOLP5TAB8 PO
[2019-01-23] MEDS ORDERED: SODIUM CHLORIDE 0.9% 1,000 ML IV ONE (20:31)
[2019-01-23] MEDS ORDERED: CLINDAMYCIN 600 MG in DEXTROSE 5% WATER 50 ML IV ONE (20:45)
[2019-01-23 21:04] LABS: HEMATOCRIT. 31.2 % (42.0-52.0); HEMOGLOBIN. 9.9 g/dL (14.0-18.0); MEAN CORPUSCULAR HEMOGLOBIN 23.5 pg (28.0-32.0); MEAN CORPUSCULAR VOLUME 74.2 fL (80.0-94.0); MEAN PLATELET VOLUME 6.6 fl (7.4-10.4); PLATELET 424 x1000/uL (130-400); RED CELL DISTRIBUTION WIDTH 23.3 % (11.6-14.6)
[2019-01-23 21:10] LABS: CHLORIDE 103 mEq/L (98-107)
[2019-01-23 21:11] LABS: PROTHROMBIN TIME 9.9 sec (9.6-11.0)
[2019-01-23 21:15] LABS: NUCLEATED RED BLOOD CELLS 1 /100 WBC; PLATELET ESTIMATE NORMAL
[2019-01-23] MEDS ORDERED: DEXT 5%/0.45% NACL 1000ML 1,000 ML IV SCH (22:34)
[2019-01-23] MEDS ORDERED: ONDANSETRON HCL 4MG/2ML INJ IV PRN (22:45)
[2019-01-23] MEDS ORDERED: LORAZEPAM 2MG/ML CPJ IV PRN (22:45)
[2019-01-23] MEDS ORDERED: ACETAMINOPHEN 325MG TABLET PO PRN (22:45)
[2019-01-23] MEDS ORDERED: DIPHENHYDRAMINE 50MG/ML VIAL IV PRN (22:45)
[2019-01-23] MEDS ORDERED: CLONIDINE 0.1MG TABLET PO PRN (22:45)
[2019-01-23] MEDS ORDERED: DOCUSATE SODIUM 100MG CAPSULE PO PRN (22:45)
[2019-01-23] MEDS ORDERED: CLINDAMYCIN 600 MG in SODIUM CHLORIDE 0.9% 50 ML IV NR (23:30)
[2019-01-24 04:52] LABS: HEMOGLOBIN. 10.5 g/dL (14.0-18.0); MEAN CORPUSCULAR HEMOGLOBIN 23.6 pg (28.0-32.0); MEAN CORPUSCULAR VOLUME 73.9 fL (80.0-94.0); MEAN PLATELET VOLUME 7.2 fl (7.4-10.4); PLATELET 492 x1000/uL (130-400); RED BLOOD CELL COUNT 4.46 mill/uL (4.7-6.1); RED CELL DISTRIBUTION WIDTH 23.6 % (11.6-14.6)
[2019-01-24 04:57] LABS: CHLORIDE 104 mEq/L (98-107)
[2019-01-24 05:19] LABS: PLATELET ESTIMATE INCREASED
[2019-01-24 07:10] VITALS: BP 134/62
[2019-01-24 08:00] VITALS: BP 134/62
[2019-01-24] MEDS ORDERED: VANCOMYCIN 1 G PREMIX 200 ML IV NR (09:00)
[2019-01-24] MEDS: QUETIAPINE FUMARATE 50MG TABLET PO SCH ×2 (09:20→21:00)
[2019-01-24] MEDS: MEMANTINE HCL 5MG TABLET PO SCH (09:20)
[2019-01-24] MEDS: HYDRALAZINE HCL 50MG TABLET PO SCH ×2 (09:21→21:00)
[2019-01-24] MEDS: AMLODIPINE 5MG TABLET PO SCH ×2 (09:21→21:00)
[2019-01-24] MEDS: LEVETIRACETAM 500MG TABLET PO SCH ×2 (09:21→21:00)
[2019-01-24] MEDS: CARVEDILOL 6.25 MG TABLET PO SCH ×3 (09:21→21:00)
[2019-01-24 12:00] VITALS: BP 129/75
[2019-01-24] MEDS: DEXT 5%/0.45% NACL 1000ML 1,000 ML IV SCH (12:28)
[2019-01-24 16:00] VITALS: BP 104/55
[2019-01-24] MEDS ORDERED: BUPIVACAINE HCL/PF 0.5% (5MG/ML) 10ML ONE (19:18)
[2019-01-24] MEDS ORDERED: LIDOCAINE HCL 1% 20ML VIAL (Pyxis) INJ ONE (19:18)
[2019-01-24] MEDS ORDERED: BACITRACIN 50,000 UNITS/VIAL ONE (19:19)
[2019-01-24 20:00] VITALS: BP 125/73
[2019-01-24] MEDS ORDERED: MIDAZOLAM HCL 2 MG/2 ML VIAL ONE (20:39)
[2019-01-24] MEDS ORDERED: FENTANYL CITRATE/PF 50MCG/ML 2ML VIAL ONE (20:39)
[2019-01-24] MEDS ORDERED: DIPHENHYDRAMINE 50MG/ML VIAL ONE (20:40)
[2019-01-24] MEDS ORDERED: SODIUM CHLORIDE 0.9% 10ML VIAL ONE ×3 (21:05→21:57)
[2019-01-24] MEDS ORDERED: EPHEDRINE SULFATE 50MG/ML VIAL ONE (21:05)
[2019-01-24] MEDS ORDERED: PHENYLEPHRINE HCL 10 MG/ML 1ML (IV VIAL) IV ONE (21:07)
[2019-01-24] MEDS ORDERED: HYDROCORTISONE SOD SUCCINATE 100 MG/2 ML VIAL ONE (21:13)
[2019-01-24] MEDS ORDERED: HYDRALAZINE 20MG/ML VIAL ONE (21:57)
[2019-01-25] VITALS: BP_SYST 113; BP_SYST 175; BP_DIAS 52; BP_DIAS 99
[2019-01-25] MEDS: VANCOMYCIN 750 MG PREMIX 150 ML IV SCH ×3 (02:42→21:09)
[2019-01-25 04:00] VITALS: BP 115/55
[2019-01-25] MEDS: DEXT 5%/0.45% NACL 1000ML 1,000 ML IV SCH (05:32)
[2019-01-25 08:00] VITALS: BP 115/61
[2019-01-25 09:29] LABS: HEMATOCRIT. 29.5 % (42.0-52.0); HEMOGLOBIN. 9.3 g/dL (14.0-18.0); MEAN CORPUSCULAR HEMOGLOBIN 23.3 pg (28.0-32.0); MEAN PLATELET VOLUME 6.7 fl (7.4-10.4); PLATELET 434 x1000/uL (130-400); RED BLOOD CELL COUNT 3.99 mill/uL (4.7-6.1); RED CELL DISTRIBUTION WIDTH 23.1 % (11.6-14.6)
[2019-01-25 09:38] LABS: CHLORIDE 104 mEq/L (98-107)
[2019-01-25] MEDS: HYDRALAZINE HCL 50MG TABLET PO SCH ×2 (09:55→21:06)
[2019-01-25] MEDS: CARVEDILOL 6.25 MG TABLET PO SCH ×2 (09:56→21:05)
[2019-01-25] MEDS: QUETIAPINE FUMARATE 50MG TABLET PO SCH ×2 (09:56→21:06)
[2019-01-25] MEDS: AMLODIPINE 5MG TABLET PO SCH ×2 (09:56→21:06)
[2019-01-25] MEDS: LEVETIRACETAM 500MG TABLET PO SCH ×2 (09:58→21:06)
[2019-01-25] MEDS: MEMANTINE HCL 5MG TABLET PO SCH (09:59)
[2019-01-25] MEDS ORDERED: LORAZEPAM 2MG/ML CPJ IV PRN (10:45)
[2019-01-25] MEDS ORDERED: HALOPERIDOL LACTATE 5MG/ML VIAL IM NR (11:15)
[2019-01-25 12:00] VITALS: BP 117/50
[2019-01-25 13:53] LABS: PLATELET ESTIMATE SLIGHTLY INCREASED
[2019-01-25 16:00] VITALS: BP 112/47
[2019-01-25] MEDS ORDERED: HALOPERIDOL LACTATE 5MG/ML VIAL IM PRN (16:15)
[2019-01-25 20:00] VITALS: BP 138/67
[2019-01-25] MEDS ORDERED: ENOXAPARIN 40MG/0.4ML SYR SUBCUT SCH (21:00)
[2019-01-26] VITALS (7 sets, daily range): BP systolic 113–135; BP diastolic 52–70
[2019-01-26] MEDS: DEXT 5%/0.45% NACL 1000ML 1,000 ML IV SCH (03:46)
[2019-01-26 06:47] LABS: HEMATOCRIT. 29.3 % (42.0-52.0); HEMOGLOBIN. 9.1 g/dL (14.0-18.0); MEAN CORPUSCULAR HEMOGLOBIN 22.9 pg (28.0-32.0); MEAN CORPUSCULAR VOLUME 73.7 fL (80.0-94.0); MEAN PLATELET VOLUME 7.1 fl (7.4-10.4); PLATELET 430 x1000/uL (130-400); RED BLOOD CELL COUNT 3.98 mill/uL (4.7-6.1); RED CELL DISTRIBUTION WIDTH 23.3 % (11.6-14.6)
[2019-01-26 07:11] LABS: CHLORIDE 106 mEq/L (98-107)
[2019-01-26] MEDS: QUETIAPINE FUMARATE 50MG TABLET PO SCH (10:00)
[2019-01-26] MEDS: CARVEDILOL 6.25 MG TABLET PO SCH (10:01)
[2019-01-26] MEDS: MEMANTINE HCL 5MG TABLET PO SCH (10:01)
[2019-01-26] MEDS: HYDRALAZINE HCL 50MG TABLET PO SCH (10:02)
[2019-01-26] MEDS: LEVETIRACETAM 500MG TABLET PO SCH (10:02)
[2019-01-26] MEDS: AMLODIPINE 5MG TABLET PO SCH (10:03)
[2019-01-26] MEDS ORDERED: VANCOMYCIN 500 MG PREMIX 100 ML IV SCH (13:00)
[2019-01-27 15:19] LABS: PLATELET ESTIMATE SLIGHTLY INCREASED
== END 2019-01-26 21:05 | DRG 564 ==
LOC: ER 18:40 → 6WST 22:46 → EDBEDREQTM 23:41 → EDBEDREQSVC 23:41 → ENRESERV 01-24 05:51
PROVIDERS: ADMIT Internal Medicine Nephrology; ATTEND Internal Medicine Nephrology
PROC: 0H9KXZZ Drainage of Right Lower Leg Skin, External Approach (ICD-10-PCS; principal; 2019-01-24)
DX: T87.43 Infection of amputation stump, right lower extremity (principal); E43 Unspecified severe protein-calorie malnutrition; L02.419 Cutaneous abscess of limb, unspecified; F03.91 Unspecified dementia, unspecified severity, with behavioral disturbance; Z68.1 Body mass index [BMI] 19.9 or less, adult; L02.415 Cutaneous abscess of right lower limb; E11.51 Type 2 diabetes mellitus with diabetic peripheral angiopathy without gangrene; I10 Essential (primary) hypertension; D64.9 Anemia, unspecified; Y83.5 Amputation of limb(s) as the cause of abnormal reaction of the patient, or of later complication, without mention of misadventure at the time of the procedure; Y92.89 Other specified places as the place of occurrence of the external cause; Z95.828 Presence of other vascular implants and grafts; Z86.718 Personal history of other venous thrombosis and embolism; Z86.711 Personal history of pulmonary embolism; Z79.51 Long term (current) use of inhaled steroids; Z79.899 Other long term (current) drug therapy
CPT/HCPCS: 36415; 80048; 80202; 84484; 85651; 87070; 87075; 87077; 99285; J0360; J1200; J1630; J1650; J1720; J2060; J2250; J2370; J3010; J3370; J3490; J7030; J7060

== ENCOUNTER 2019-02-07 02:31 | Emergency (ER) | payer MEDICARE, MEDICAID ==
[~2019-02-07] VITALS: Ht 172.7 cm; Wt 68.0 kg
[2019-02-07 02:56] VITALS: BP 140/91
== END 2019-02-07 05:11 ==
LOC: ER 02:31
DX: T78.40XA Allergy, unspecified, initial encounter (principal); F03.90 Unspecified dementia, unspecified severity, without behavioral disturbance, psychotic disturbance, mood disturbance, and anxiety; I48.91 Unspecified atrial fibrillation; I11.9 Hypertensive heart disease without heart failure; G40.909 Epilepsy, unspecified, not intractable, without status epilepticus; Z79.01 Long term (current) use of anticoagulants; Z04.89 Encounter for examination and observation for other specified reasons; Z89.611 Acquired absence of right leg above knee; X58.XXXA Exposure to other specified factors, initial encounter
CPT/HCPCS: 71045; 72170; 99284

== ENCOUNTER 2019-05-26 11:36 | Emergency (ER) | payer MEDICARE, MEDICAID ==
[~2019-05-26] VITALS: Ht 177.8 cm; Wt 83.0 kg
[~2019-05-26 11:36] MED LIST changes: -MEMA10TA19 PO; +MEMA10TA55 PO; +SIMV-46 PO; -SIMV40TA5 PO
[2019-05-26 16:10] LABS: CLARITY URINE TURBID (CLEAR); COLOR URINE DARK YELLOW (YELLOW); KETONES URINE TRACE (NEGATIVE); LEUKOCYTE ESTERASE URINE 3+ (NEGATIVE); NITRITE URINE POSITIVE (NEGATIVE); OCCULT BLOOD URINE NEGATIVE (NEGATIVE); PH URINE 8.5 (4.5-8.0); PROTEIN URINE 3+ (NEGATIVE); SPECIFIC GRAVITY URINE 1.023 (1.005-1.030)
[2019-05-26] MEDS ORDERED: CEFTRIAXONE 1 G PREMIX 50 ML IV ONE (17:30)
[2019-05-26 19:20] VITALS: BP 138/66
== END 2019-05-26 19:30 | disposition home or self-care (01) ==
LOC: ER 11:36
DX: N47.2 Paraphimosis (principal); N39.0 Urinary tract infection, site not specified; G40.909 Epilepsy, unspecified, not intractable, without status epilepticus; I11.9 Hypertensive heart disease without heart failure; E78.00 Pure hypercholesterolemia, unspecified; I73.9 Peripheral vascular disease, unspecified; F03.90 Unspecified dementia, unspecified severity, without behavioral disturbance, psychotic disturbance, mood disturbance, and anxiety; I48.91 Unspecified atrial fibrillation; Z78.1 Physical restraint status; Z79.01 Long term (current) use of anticoagulants
CPT/HCPCS: 81003; 87077; 87086; 87186; 96374; 99283; J0696